=== PATIENT | male | born 1940 | race Caucasian/White ===

== ENCOUNTER 2017-07-13 14:38 | Emergency (ER) | payer OTHER ==
[~2017-07-13] VITALS: Ht 157.5 cm; Wt 87.5 kg
[~2017-07-13 14:38] MED LIST: ASA81 MG PO; COZAAR25 MG PO; LAMISIL15 GM TP; LIPITOR40 MG PO; PLAVIX75 MG PO; PROTONIX40 MG PO; ZANTAC300 MG PO
[2017-07-13] MEDS ORDERED: HYZAAR 100-12.1 EACH (15:03)
[2017-07-13] MEDS ORDERED: PNEU16DI2 (15:04)
== END 2017-07-13 17:48 | disposition home or self-care (01) ==
LOC: ER 14:38
DX: G56.02 Carpal tunnel syndrome, left upper limb (principal); M19.032 Primary osteoarthritis, left wrist

== ENCOUNTER 2021-04-24 11:44 | Emergency (ER) | payer OTHER ==
[~2021-04-24] VITALS: Ht 154.9 cm; Wt 90.7 kg
[~2021-04-24 11:44] MED LIST changes: +HYZAAR 100-12.1 EACH; +PNEU16DI2
[2021-04-24] MEDS ORDERED: AVAPRO75 MG PO (11:56)
== END 2021-04-24 15:54 | disposition home or self-care (01) ==
LOC: ER 11:44
DX: K29.00 Acute gastritis without bleeding (principal); I10 Essential (primary) hypertension

== ENCOUNTER → 2023-01-27 | Emergency (ER) | payer OTHER ==
[~2023-01-27] VITALS: Ht 157.5 cm; Wt 90.7 kg
[~2023-01-27] MED LIST changes: +AVAPRO75 MG PO; +LIPITOR40 M1
[2023-01-27 08:42] LABS: HEMATOCRIT 46.3 % (39.0-48.0); HEMOGLOBIN 15.9 g/dL (13-16.00); MEAN CELL VOLUME 86.8 fL (80.0-100.00); MEAN CORPUSCULAR HEMOGLOBIN 29.9 pg (27.00-32.0); MEAN CORPUSCULAR HGB CONC 34.5 g/dl (32.0-36.0); PLATELET COUNT 162 K/uL (150-450); RED BLOOD COUNT 5.33 M/uL (4.00-6.00); RED CELL DISTRIBUTION WIDTH 13.5 % (11.5-14.5)
[2023-01-27 09:00] LABS: ALBUMIN 3.6 gm/dL (3.4-5.0); BILIRUBIN TOTAL 0.56 mg/dL (0.3-1.2); BILIRUBIN,CONJUGATED 0.17 mg/dL (0.0-0.2); BILIRUBIN,UNCONJUGATED 0.39 mg/dL (0.0-0.6); CALCIUM 9.3 mg/dL (8.5-10.1); CREATININE SERUM 0.69 mg/dL (0.70-1.30); GFR 110.32; POTASSIUM 4.03 mEq/L (3.5-5.1); TOTAL PROTEIN 7.7 gm/dL (6.4-8.2)
[2023-01-27 10:28] LABS: URINE APPEARANCE Clear; URINE BILIRRUBIN Negative (NEGATIVE); URINE BLOOD Negative; URINE COLOR Yellow; URINE GLUCOSE Negative (NEGATIVE); URINE LEUKOCYTE Negative; URINE NITRATE Negative; URINE PROTEIN Negative (NEGATIVE); URINE UROBILINOGEN 0.2 E.U./dl
[2023-01-27 10:32] LABS: URINE BACTERIA 7.5 uL (0.0-1933); URINE EPITHELIAL CELLS 5.3 uL (0.0-38.8); URINE RBC 3.1 uL (0.0-20.8); URINE WBC 3.5 uL (0.0-23.2)
== END | disposition home or self-care (01) ==
LOC: ER 06:37
PROVIDERS: General Practice
DX: R10.32 Left lower quadrant pain (principal); I10 Essential (primary) hypertension; Z95.0 Presence of cardiac pacemaker; K43.9 Ventral hernia without obstruction or gangrene
CPT/HCPCS: 36415; 74176; 96372; 99284; J1885

== ENCOUNTER 2023-02-15 07:44 | Emergency (ER) | payer OTHER ==
[~2023-02-15] VITALS: Ht 160 cm; Wt 90.7 kg
[2023-02-15 10:14] LABS: CALCIUM 9.3 mg/dL (8.5-10.1); CREATININE SERUM 0.65 mg/dL (0.70-1.30); GFR 118.19; POTASSIUM 4.12 mEq/L (3.5-5.1)
[2023-02-15 11:08] LABS: URINE APPEARANCE Clear; URINE BILIRRUBIN Negative (NEGATIVE); URINE BLOOD Negative; URINE COLOR Yellow; URINE GLUCOSE Negative (NEGATIVE); URINE LEUKOCYTE Negative; URINE NITRATE Negative; URINE PROTEIN Negative (NEGATIVE); URINE UROBILINOGEN 0.2 E.U./dl
[2023-02-15 11:10] LABS: HEMATOCRIT 45.7 % (39.0-48.0); HEMOGLOBIN 15.7 g/dL (13-16.00); MEAN CELL VOLUME 87.7 fL (80.0-100.00); MEAN CORPUSCULAR HEMOGLOBIN 30.1 pg (27.00-32.0); MEAN CORPUSCULAR HGB CONC 34.4 g/dl (32.0-36.0); RED BLOOD COUNT 5.21 M/uL (4.00-6.00); RED CELL DISTRIBUTION WIDTH 13.5 % (11.5-14.5)
[2023-02-15 11:12] LABS: URINE BACTERIA 8.8 uL (0.0-1933); URINE EPITHELIAL CELLS 2.6 uL (0.0-38.8); URINE RBC 3.1 uL (0.0-20.8); URINE WBC 2.4 uL (0.0-23.2)
[2023-02-15 11:42] LABS: PLATELET COUNT 87 K/uL (150-450)
== END 2023-02-15 21:29 | disposition home or self-care (01) ==
LOC: ER 07:44
PROVIDERS: Emergency Medicine
DX: R55 Syncope and collapse (principal); D69.6 Thrombocytopenia, unspecified; R10.9 Unspecified abdominal pain; I10 Essential (primary) hypertension
CPT/HCPCS: 36415; 74177; 96365; 96366; 99284; J7030; Q9965

== ENCOUNTER 2023-02-24 11:13 | Emergency (ER) | payer OTHER ==
[~2023-02-24] VITALS: Ht 154.9 cm; Wt 95.3 kg
== END 2023-02-24 14:45 | disposition home or self-care (01) ==
LOC: ER 11:13
DX: K40.90 Unilateral inguinal hernia, without obstruction or gangrene, not specified as recurrent (principal)
CPT/HCPCS: 96372; 99283; J1885

== ENCOUNTER 2023-09-16 15:20 | Inpatient (IN) | payer OTHER ==
[~2023-09-16] VITALS: Ht 160 cm; Wt 90.7 kg
--- NOTE | 2023-09-16 16:27 | NUR ---
PACIENTE ALERTA Y ORIENTADO EN ROSAMARIA DONALD ESFERAS; INDICA TENER ARA HERNIA EN EL LADO TORSTEN DEL ABDOMEN Y COMENZAR CON DOLOR HOY EN LAS 9AM. INDICA NAUSEAS Y VOMITOS. SE MONITOREAN VS Y SE UBICA.
--- NOTE | 2023-09-16 17:11 | NUR ---
PENDIENTE A REALIZAR XRAY
[2023-09-16] MEDS ORDERED: MEPERIDINE HCL 25 MG/ML AMPUL IV ONE (19:00)
--- NOTE | 2023-09-16 19:02 | NUR ---
PACIENTE EVALUADO POR DR. CHENG QUIEN [place] [facility], ELLIE THORNE EDUCA ACERCA DEL MISMO Y REFIERE ENTENDER. SE CANALIZA Y COLECTAN MUESTRAS DE LABORTAORIO MEDIANTE MEDIDAS ASEPTICAS. SE ADMINISTRA MEDICAMENTO ASHISH ORDEN MEDICA.
[2023-09-16 20:11] LABS: INR 1.08; PROTHROMBIN TIME 11.3 SECONDS (9.0-11.5)
[2023-09-16 20:17] LABS: ALBUMIN 3.9 gm/dL (3.4-5.0); BILIRUBIN TOTAL 0.93 mg/dL (0.3-1.2); CALCIUM 9.7 mg/dL (8.5-10.1); CREATININE SERUM 0.64 mg/dL (0.70-1.30); GFR 120.03; POTASSIUM 4.42 mEq/L (3.5-5.1); TOTAL PROTEIN 7.9 gm/dL (6.4-8.2)
[2023-09-16 21:13] LABS: PH,URINE 6.5 (5.0-8.0); URINE APPEARANCE Clear; URINE BILIRRUBIN Negative (NEGATIVE); URINE BLOOD Negative; URINE COLOR Yellow; URINE GLUCOSE Negative (NEGATIVE); URINE KETONE 15 (NEGATIVE); URINE LEUKOCYTE Negative; URINE NITRATE Negative; URINE PROTEIN 30 (NEGATIVE)
[2023-09-16 21:17] LABS: URINE BACTERIA 40.3 uL (0.0-1933); URINE EPITHELIAL CELLS 19.6 uL (0.0-38.8); URINE RBC 35.7 uL (0.0-20.8); URINE WBC 8.3 uL (0.0-23.2)
[2023-09-16 21:30] LABS: URINE CAST 0.76 uL (0.0-1.40)
[2023-09-16 22:25] LABS: HEMATOCRIT 45.2 % (39.0-48.0); HEMOGLOBIN 15.4 g/dL (13-16.00); MEAN CELL VOLUME 86.8 fL (80.0-100.00); MEAN CORPUSCULAR HEMOGLOBIN 29.6 pg (27.00-32.0); MEAN CORPUSCULAR HGB CONC 34.1 g/dl (32.0-36.0); PLATELET COUNT 165 K/uL (150-450); RED BLOOD COUNT 5.21 M/uL (4.00-6.00); RED CELL DISTRIBUTION WIDTH 13.3 % (11.5-14.5)
--- NOTE | 2023-09-16 22:45 | NUR ---
SE INTENTA INSERTAR SONDA NASOGASTRICA Y NO SE LOGRA CON EXITO. PACIENTE REALIZA [place]UB[place]AM RESISTENCIA Y REHUSA NGT.
[2023-09-16] MEDS ORDERED: FAMOTIDINE/PF 20 MG in 0.9 % SODIUM CHLORIDE 8 ML IV PUSH SCH (23:43)
[2023-09-16] MEDS ORDERED: CIPROFLOXACIN IN 5 % DEXTROSE 200 ML IV SCH (23:44)
[2023-09-16] MEDS ORDERED: ACETAMINOPHEN 500 MG GEL..CAP PO PRN (23:45)
[2023-09-16] MEDS ORDERED: MEPERIDINE HCL/PF 25 MG/ML VIAL IM PRN (23:45)
[2023-09-16] MEDS ORDERED: ONDANSETRON HCL 4 MG in 0.9 % SODIUM CHLORIDE 50 ML IV PRN (23:45)
[2023-09-16] MEDS ORDERED: ENALAPRILAT DIHYDRATE 1.25 MG/ML VIAL IV PRN (23:45)
[2023-09-16] MEDS ORDERED: KETOROLAC TROMETHAMINE 15 MG VIAL IU SCH (23:45)
[2023-09-17] MEDS ORDERED: METRONIDAZOLE/SODIUM CHLORIDE 100 ML IV SCH (01:00)
[2023-09-17] MEDS ORDERED: FAMOTIDINE/PF 20 MG/2 ML VIAL ONE (01:09)
[2023-09-17] MEDS ORDERED: KETOROLAC TROMETHAMINE 30 MG VIAL ONE (01:09)
[2023-09-17 01:28] LABS: INR 1.09; PARTIAL THROMBOPLASTIN TIME 27.1 SECONDS (22.0-34.0); PROTHROMBIN TIME 11.4 SECONDS (9.0-11.5)
[2023-09-17] MEDS ORDERED: KETOROLAC TROMETHAMINE 30 MG VIAL IV SCH (13:00)
[2023-09-17] MEDS ORDERED: ENALAPRILAT DIHYDRATE 1.25 MG/ML VIAL IV PRN (13:15)
[2023-09-17] MEDS ORDERED: hydrALAZINE HCL 20 MG VIAL IV PRN (20:15)
[2023-09-18] MEDS ORDERED: ONDANSETRON HCL 2 MG/ML VIAL ONE (10:23)
[2023-09-19 08:28] LABS: HEMATOCRIT 41.6 % (39.0-48.0); HEMOGLOBIN 14.3 g/dL (13-16.00); MEAN CELL VOLUME 87.4 fL (80.0-100.00); MEAN CORPUSCULAR HGB CONC 34.4 g/dl (32.0-36.0); RED BLOOD COUNT 4.76 M/uL (4.00-6.00); RED CELL DISTRIBUTION WIDTH 13.7 % (11.5-14.5)
[2023-09-19 08:44] LABS: PLATELET COUNT 105 K/uL (150-450)
[2023-09-19 09:11] LABS: ALBUMIN 3.1 gm/dL (3.4-5.0); CALCIUM 8.5 mg/dL (8.5-10.1); CREATININE SERUM 0.58 mg/dL (0.70-1.30); GFR 134.47; GLOBULINA 3.2 G/DL (2.4-3.5); MAGNESIUM 2.1 mg/dL (1.8-2.4); PHOSPHOROUS 2.5 mg/dL (2.5-4.9); POTASSIUM 4.4 mEq/L (3.5-5.1); TOTAL PROTEIN 6.3 gm/dL (6.4-8.2)
[2023-09-19] MEDS ORDERED: LOSARTAN POTASSIUM 50 MG TABLET PO SCH (12:00)
[2023-09-19] MEDS ORDERED: OxyCODONE HCL/APAP UD (PERCOCET) PO PRN (15:15)
[2023-09-19] MEDS ORDERED: TAMSULOSIN HCL 0.4 MG CAP PO NR (15:30)
[2023-09-19] MEDS ORDERED: ATORVASTATIN CALCIUM 20 MG TABLET PO SCH (17:00)
[2023-09-19] MEDS ORDERED: DOCUSATE SODIUM 100MG CAP PO SCH (17:00)
[2023-09-20 08:36] LABS: HEMATOCRIT 39.4 % (39.0-48.0); HEMOGLOBIN 12.9 g/dL (13-16.00); MEAN CELL VOLUME 85.8 fL (80.0-100.00); MEAN CORPUSCULAR HEMOGLOBIN 28.1 pg (27.00-32.0); MEAN CORPUSCULAR HGB CONC 32.8 g/dl (32.0-36.0); PLATELET COUNT 237 K/uL (150-450)
[2023-09-20 08:40] LABS: RED CELL DISTRIBUTION WIDTH 18.3 % (11.5-14.5)
[2023-09-20] MEDS ORDERED: PANTOPRAZOLE SODIUM 40 MG/VIAL VIAL IV SCH (09:00)
[2023-09-20] MEDS ORDERED: LOSARTAN POTASSIUM 50 MG TABLET PO SCH (09:00)
[2023-09-20] MEDS ORDERED: TAMSULOSIN HCL 0.4 MG CAP PO SCH (09:00)
[2023-09-20 09:18] LABS: ALBUMIN 2.2 gm/dL (3.4-5.0); BILIRUBIN TOTAL 0.79 mg/dL (0.3-1.2); CALCIUM 9.9 mg/dL (8.5-10.1); CREATININE SERUM 0.57 mg/dL (0.70-1.30); GFR 137.19; GLOBULINA 2.8 G/DL (2.4-3.5); POTASSIUM 4.94 mEq/L (3.5-5.1)
[2023-09-20] MEDS ORDERED: TRAM1TAB98 PO (12:32)
[2023-09-20] MEDS ORDERED: COLACE100 MG PO (12:32)
== END 2023-09-20 14:28 | disposition home or self-care (01) | DRG 355 ==
LOC: ER 15:20 → SURH 23:51
PROVIDERS: Emergency Medicine; General Practice; Surgery; ADMIT Internal Medicine; ATTEND Internal Medicine
PROC: BW21ZZZ Computerized Tomography (CT Scan) of Abdomen and Pelvis (ICD-10-PCS; 2023-09-16)
PROC: 0DH68UZ Insertion of Feeding Device into Stomach, Via Natural or Artificial Opening Endoscopic (ICD-10-PCS; 2023-09-16)
PROC: B246ZZZ Ultrasonography of Right and Left Heart (ICD-10-PCS; 2023-09-17)
PROC: 0WQF0ZZ Repair Abdominal Wall, Open Approach (ICD-10-PCS; principal; 2023-09-18 07:00)
DX: K56.699 Other intestinal obstruction unspecified as to partial versus complete obstruction (principal); K52.9 Noninfective gastroenteritis and colitis, unspecified; K43.9 Ventral hernia without obstruction or gangrene; I10 Essential (primary) hypertension; Z95.0 Presence of cardiac pacemaker